=== PATIENT | female | born 1985 | race Caucasian/White ===

== ENCOUNTER 2018-08-04 16:21 | Inpatient (IN) | payer OTHER ==
[2018-08-04] MEDS ORDERED: Buffered Lidocaine 1% SYRIN* 1 ML/SYRINGE INTRADERM ONE (17:50)
[2018-08-04] MEDS ORDERED: Lactated Ringers 1000 ML Bag* 1,000 ML IV ONE (17:50)
[2018-08-04] MEDS ORDERED: Lactated Ringers 1000 ML Bag* 1,000 ML IV SCH (18:00)
[2018-08-04] MEDS ORDERED: Penicillin G Potassium IV* 5,000,000 UNITS in NS 0.9% 100 ML* 100 ML IVPB ONE (18:15)
[2018-08-04 19:30] LABS: Albumin 3.6 g/dL (3.2-5.2); Calcium 9.1 mg/dL (8.6-10.3); Potassium 4.1 mmol/L (3.5-5.0); Total Bilirubin 0.3 mg/dL (0.2-1.0)
[2018-08-04 19:36] LABS: Albumin/Globulin Ratio 1.3 (1-3); BUN/Creatinine Ratio 18.4 (8-20); EGFR African American 79.1 (>60); EGFR Non-African American 65.4 (>60); Globulin 2.7 g/dL (2-4); Total Protein 6.3 g/dL (6.4-8.9); Uric Acid 5.8 mg/dL (2.3-6.6)
--- NOTE | 2018-08-04 20:10 | HP ---
General Information - Reason for Visit Pt presents with ctx all day, but more intense starting at about 2:00 this afternoon. No VB/LOF. only complicated by h/o prior C/S for Cat II FHT remote from delivery at 41+ wks. - General Information Maternal Age: 32 Grav: 4 Para: 1 SAB: 2 IEA: 0 Estimated Due Date: 08/01/18 Determined By: LMP Gestational Age in Weeks/Days: 40+3 Maternal Blood Type and Rh: A Positive - Results this Serology/RPR Result: Non-Reactive Rubella Result: Immune HBsAg Result: Negative HIV Result: Negative GBS Culture Result: Positive Past Medical History Delivery History: Hx C/Section Pertinent Past Medical History: See Records - h/o depression/anx as teen; chronic gastric pain Pertinent Past Surgical History: See Records - tonsillectomy, oral surgery, - Antepartal Records Antepartal Records: Reviewed, Complicated by: - h/o C/S Review of Systems Constitutional: Uncomfortable CV Complaint: No Respiratory: Shortness of Breath: No Gastrointestinal: No Nausea/Vomiting Genitourinary: No Bleeding, No Leaking Fluid Musculoskeletal: No Epigastric Pain, Contractions Neurological: No Headache, No Visual Changes Movement: Normal Exam Allergies/Adverse Reactions: Allergies banana Allergy (Verified 08/04/18 18:38) Anaphylatic Shock cefaclor Allergy (Verified 08/04/18 18:38) Hives lactose Allergy (Verified 08/04/18 18:38) Stomach Cramps simethicone Allergy (Verified 08/04/18 18:38) See Comment VS normal to mild HTN Lab Values - Entire Visit: Laboratory Tests 08/04/18 08/04/18 18:44 18:44 Sodium 134 L Potassium 4.1 Chloride 103 Carbon Dioxide 22 Anion Gap 9 BUN 18 Creatinine 0.98 H Est GFR ( Amer) 79.1 Est GFR (Non-Af Amer) 65.4 BUN/Creatinine Ratio 18.4 Glucose 100 Uric Acid 5.8 Calcium 9.1 Total Bilirubin 0.30 AST 18 ALT 12 Alkaline Phosphatase 167 H Total Protein 6.3 L Albumin 3.6 Globulin 2.7 Albumin/Globulin Ratio 1.3 Blood Type A Positive Antibody Screen Negative - Measurements Height: 5 ft 2 in Weight: 168 lb Weight in lbs: [id number] Body Mass Index (BMI): 30.7 Pre- Weight: 138 lb Weight Gained This : 30 lbs and 0 ozs - Exam Breast: Breast Exam Deferred Heart: Normal Rhythm/Heart Sounds Lungs: Clear Bilaterally Rectal: Rectal Exam Deferred - Abdominal Exam Abdomen Exam: Non-Tender, Fundal Height Consistent with Dates - Ultrasound/Biophysical Profile Ultrasound Status: Not Done Targeted Exam Findings Estimated Weight: 7 lbs Cervical Exam: 2cm - Per RN exam on admission, pt declined additional check Effacement: 80% Station: -2 Presenting Part: Vertex Membrane Status: Intact Bleeding/Discharge: None EFM Findings - External Monitor Findings Baseline Heart Rate: 120 External Monitor Findings: Accelerations Present, No Pattern of Variable or Late Decelerations, Variability Moderate, Baseline Stable Contractions: Regular, Strong Contraction Frequency: q4-5 Assessment/Plan - Assessment 40+3 wks with h/o prior C/S now in early labor. Very reassuring status on monitoring today. Pt was extensively counseled regarding the risks and benefits of TOLAC vs repeat section during her visits, and she signed the consent form. Today, we reviewed these risks again and she strongly desires to continue with laboring. She understands an consignee and anesthesiologist will be available in the hospital while she is in labor due to the possible risk of needing emergency surgery. She also understands she can opt for a C- section at any time. We discussed that we do need to be able to monitor the baby at all times, and she agrees with this. - Obstetrical Risk Factors Obstetrical Risk Factors: GBS Positive, Previous C/Section in Labor - Plan Plan: Antibiotic Prophylaxis, Admit - Anticipate Vaginal Delivery Plan Comment: Admit, PCN ordered. Anesthesia aware of patient. - Date/Time of Admission Date of Admission: 08/04/18 Time of Admission: 18:00
[2018-08-04 20:18] LABS: ABS Basophils 0 10^3/ul (0-0.2); ABS Eosinophils 0.1 10^3/ul (0-0.6); ABS Lymphocytes 1.8 10^3/ul (1.0-4.8); ABS Monocytes 0.7 10^3/ul (0-0.8); ABS Neutrophils 7.6 10^3/ul (1.5-7.7); ABS Nucleated RBC 0 10^3/ul; Eosinophil % 0.6 %; Hematocrit 35 % (33-41); Hemoglobin 11.6 g/dL (12.0-16.0); Lymphocyte % 17.8 %; Mean Corpuscular HGB Conc 33 g/dL (31-36); Mean Corpuscular Hemoglobin 27 pg (27-31); Mean Corpuscular Volume 81 fL (80-97); Mean Platelet Volume 8.9 fL (7.4-10.4); Nucleated Red Blood Cells % 0.1; Platelet Count 207 10^3/uL (150-450); Red Blood Count 4.36 10^6 /uL (3.70-4.87); Red Cell Distribution Width 14 % (10.5-15); White Blood Count 10.1 10^3/uL (3.5-10.8)
[2018-08-04] MEDS ORDERED: Penicillin G Potassium IV* 2,500,000 UNITS in NS 0.9% 100 ML* 100 ML IVPB SCH (23:00)
[2018-08-04] MEDS ORDERED: Oxytocin in LR* 20 UNITS/1,000 ML BAG IVPB ONE (23:40)
[2018-08-05] MEDS ORDERED: Dibucaine 1% 28.35 GM TUBE PR PRN (00:17)
[2018-08-05] MEDS ORDERED: Acetaminophen TAB* 325 MG PO PRN (00:17)
[2018-08-05] MEDS ORDERED: Witch Hazel PAD* JAR TOPICAL PRN (00:17)
--- NOTE | 2018-08-05 00:32 | PROCNOTE ---
[facility]: Delivery Note - Delivery A Date of : 08/04/18 Time of : 23:37 Sex: Male Weight at : 7 lb 2 oz Score 1 Minute: 9 Score 5 Minutes: 9 Gestational Age in Weeks and Days at Delivery: 40 Weeks and 3 Days Delivery Method: Spontaneous Vaginal Labor: Spontaneous Did Patient attempt ?: Yes, Successful Amniotic Fluid: Meconium Anesthesia/Analgesia: None Delivered By: Laine Schuler - Nursery Level of Nursery: Regular/Bedside - Perineum Perineal Injury: Vaginal Laceration, 2nd Degree Perineal Repair: By Delivering Practioner - Events Delivery Events of Note: Pitocin Only After Delivery, Full Course of Antibiotics - Additional Delivery Notes Additional Delivery Notes: Pt presented in early labor at term, desired TOLAC. Progressed very well in labor with normal labor curve, no anesthesia. Reached C/C/+1 and began pushing. Pt only pushed for 21 minutes, to deliver the head in a controlled fashion. Compound anterior arm present, and both shoulders delivered easily, followed by body. Infant cried immediately, placed on mother's abdomen. Cord doubly clamped and cut by father. Intact placenta delivered spontaneously. IV pitocin started. 2nd degree perineal lac and vaginal lac that extended from left introitus injected with 1% lidocaine. Bleeding vessel in 2nd degree lac clamped, then entire lac repaired with 3-0 Vicryl rapide. Same suture also used for vaginal lac. Good hemostasis after repair.
[2018-08-05] MEDS ORDERED: Ibuprofen TAB* 600 MG ONE (00:45)
[2018-08-05] MEDS: Ibuprofen TAB* 600 MG PO PRN ×4 (00:50→20:15)
[2018-08-05] MEDS ORDERED: Lactated Ringers 1000 ML Bag* 1,000 ML IV SCH (01:00)
[2018-08-05] MEDS ORDERED: Oxytocin in LR* 20 UNITS/1,000 ML BAG IVPB SCH (01:00)
[2018-08-05] MEDS ORDERED: Lidocaine 1% INJ* 10 MG/ML 30 ML SDV ONE (06:52)
[2018-08-05] MEDS ORDERED: Simethicone TAB* 80 MG TAB.CHEW PO SCH (08:30)
[2018-08-05] MEDS: Docusate CAP* 100 MG PO SCH ×3 (08:36→20:15)
[2018-08-05 09:15] LABS: ABS Basophils 0 10^3/ul (0-0.2); ABS Eosinophils 0 10^3/ul (0-0.6); ABS Lymphocytes 1.9 10^3/ul (1.0-4.8); ABS Monocytes 0.7 10^3/ul (0-0.8); ABS Neutrophils 14.1 10^3/ul (1.5-7.7); ABS Nucleated RBC 0 10^3/ul; Eosinophil % 0.1 %; Hematocrit 27 % (33-41); Hemoglobin 8.9 g/dL (12.0-16.0); Lymphocyte % 11.5 %; Mean Corpuscular HGB Conc 33 g/dL (31-36); Mean Corpuscular Hemoglobin 27 pg (27-31); Mean Corpuscular Volume 81 fL (80-97); Nucleated Red Blood Cells % 0; Platelet Count 174 10^3/uL (150-450); Red Cell Distribution Width 14 % (10.5-15); White Blood Count 16.8 10^3/uL (3.5-10.8)
[2018-08-05] MEDS: Ferrous Gluconate TAB* 324 MG TAB PO SCH ×2 (09:32→20:15)
[2018-08-06] MEDS: Ibuprofen TAB* 600 MG PO PRN ×2 (04:17→12:07)
[2018-08-06 08:36] VITALS: BP 102/54
[2018-08-06] MEDS: Docusate CAP* 100 MG PO SCH (08:51)
[2018-08-06] MEDS: Ferrous Gluconate TAB* 324 MG TAB PO SCH (08:51)
== END 2018-08-06 16:36 | disposition home or self-care (01) | DRG 807 ==
LOC: MCHOBOUT 16:21 → MCHOB 17:47
PROVIDERS: ADMIT Obstetrics & Gynecology; ATTEND Obstetrics & Gynecology
PROC: 10907ZC Drainage of Amniotic Fluid, Therapeutic from Products of Conception, Via Natural or Artificial Opening (ICD-10-PCS; principal; 2018-08-04)
PROC: 10E0XZZ Delivery of Products of Conception, External Approach (ICD-10-PCS; 2018-08-04)
PROC: 0KQM0ZZ Repair Perineum Muscle, Open Approach (ICD-10-PCS; 2018-08-04)
PROC: 4A1HXCZ Monitoring of Products of Conception, Cardiac Rate, External Approach (ICD-10-PCS; 2018-08-04)
PROC: 0UQGXZZ Repair Vagina, External Approach (ICD-10-PCS; 2018-08-04)
DX: O48.0 Post-term pregnancy (principal); Z37.0 Single live birth; O99.824 Streptococcus B carrier state complicating childbirth; O32.2XX0 Maternal care for transverse and oblique lie, not applicable or unspecified; O32.6XX0 Maternal care for compound presentation, not applicable or unspecified; O34.211 Maternal care for low transverse scar from previous cesarean delivery; O77.0 Labor and delivery complicated by meconium in amniotic fluid; O70.1 Second degree perineal laceration during delivery; O90.81 Anemia of the puerperium; Z88.8 Allergy status to other drugs, medicaments and biological substances; Z3A.40 40 weeks gestation of pregnancy; Z91.018 Allergy to other foods
CPT/HCPCS: 36415; 80053; 84550; 85025; 86850; 86900; 86901; A9270-GY; J2540

== ENCOUNTER 2019-02-25 12:21 | Emergency (ER) | payer OTHER ==
[2019-02-25 13:00] VITALS: BP 109/78
--- NOTE | 2019-02-25 13:24 | UC ---
Throat Pain/Nasal Arnav HPI - HPI Summary HPI Summary: 33-year-old female who states that she had some tongue pain over the past 2 days with some numbness however the numbness has resolved. She states her "allergies hit me with a bang this morning". She states both her children were ill with croup last week. She states her throat is somewhat scratchy but not really sore. She denies any fever or chills. She is breast-feeding. - History of Current Complaint Chief Complaint: UCGeneralIllness Stated Complaint: TONGUE PAIN Time Seen by Provider: 02/25/19 13:10 Hx Obtained From: Patient Hx Last Menstrual Period: no period - 6 months post- ?: No - Breast-feeding Onset/Duration: Gradual Onset Severity: Mild Pain Intensity: 1 Cough: None Associated Signs & Symptoms: Positive: Negative Related History: Seasonal Allergies - Allergies/Home Medications Allergies/Adverse Reactions: Allergies Allergy/AdvReac Type Severity Reaction Status Date / Time banana Allergy Anaphylatic Verified 02/25/19 12:54 Shock cefaclor Allergy Hives Verified 02/25/19 12:54 simethicone Allergy See Comment Verified 02/25/19 12:54 lactose AdvReac Stomach Verified 02/25/19 12:54 Cramps Home Medications: Home Medications NK [No Home Medications Reported] 02/25/19 [History Confirmed 02/25/19] PMH/Surg Hx/FS Hx/Imm Hx Previously Healthy: Yes - Surgical History Surgical History: Yes Surgery Procedure, Year, and Place: 2016 - Family History Known Family History: Positive: Non-Contributory - Social History Lives: With Family - Patient is 6 months and breast-feeding Alcohol Use: Occasionally Substance Use Type: None Smoking Status (MU): Never Smoked Tobacco Have You Smoked in the Last Year: No - Immunization History Most Recent Influenza Vaccination: 01/2018 Most Recent Tetanus Shot: 10/12/15 Most Recent Pneumonia Vaccination: never Review of Systems All Other Systems Reviewed And Are Negative: Yes ENT: Positive: Other - Pain below her tongue which started today. Yesterday she had a small amount of numbness to her tongue but that has resolved. She denies any swelling. Is Patient Immunocompromised?: No Physical Exam Triage Information Reviewed: Yes Appearance: Well-Appearing, No Pain Distress, Well-Nourished Vital Signs: Initial Vital Signs Temp 98.5 F 10/29/19 12:55 Pulse 61 02/25/19 12:55 Resp 16 02/25/19 12:55 BP 109/78 02/25/19 12:55 Pulse Ox 99 02/25/19 12:55 Vital Signs Reviewed: Yes Eyes: Positive: Conjunctiva Clear ENT: Positive: Hearing grossly normal, Pharynx normal, TMs normal, Uvula midline , Other - The patient's tongue is completely normal. There is no erythema, swelling,'s no ulcerations, no lesions. The place below her anterior tongue where she points to the most pain is completely normal. The tip of her tongue is mildly painful to touch but that appears normal as well. Neck: Positive: Supple, Nontender, No Lymphadenopathy Respiratory: Positive: Lungs clear, Normal breath sounds, No respiratory distress, No accessory muscle use Cardiovascular: Positive: RRR, No Murmur, Pulses Normal, Brisk Capillary Refill Abdomen Description: Positive: Nontender, No Organomegaly, Soft. Negative: CVA Tenderness (R), CVA Tenderness (L), Hepatomegaly, Splenomegaly Bowel Sounds: Positive: Present Musculoskeletal Exam: Normal Neurological Exam: Normal Psychological Exam: Normal Skin: Positive: Other - See above notes. Throat Pain/Nasal Course/Dx - Course Course Of Treatment: Patient is comfortable here however she is fairly exhausted because her 6-month- old is still breast-feeding and does not sleep at night. At this point in time I advised her just to observe for any worsening symptoms. She may take her Claritin as needed for her allergies. She is to follow-up with her primary care provider for any worsening symptoms over the next few days. Patient is agreeable to this plan of action. - Differential Dx/Diagnosis Provider Diagnosis: Painful tongue Discharge ED - Sign-Out/Discharge Documenting (check all that apply): Patient Departure All imaging exams completed and their final reports reviewed: No Studies - Discharge Plan Condition: Good Disposition: HOME Referrals: No Primary Care Phys,NOPCP [Primary Care Provider] - [facility] [Outside] Additional Instructions: Warm saltwater gargles, Tylenol for pain, follow-up with your primary care provider if no improvement in 3 or 4 days. If you get to the point where your tongue is swollen and you have difficulty swallowing you are to go to the emergency room for further treatment. - Billing Disposition and Condition Condition: GOOD Disposition: Home
== END 2019-02-25 13:33 | disposition home or self-care (01) ==
LOC: UCEAST 12:21
DX: K14.6 Glossodynia (principal); Z91.011 Allergy to milk products; Z88.8 Allergy status to other drugs, medicaments and biological substances; Z91.018 Allergy to other foods
CPT/HCPCS: 99211; G0463